=== PATIENT | male | born 1960 | race Caucasian/White ===

== ENCOUNTER 2023-05-03 17:57 | Emergency (ER) | payer OTHER, BC, SELFPAY ==
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
[2023-05-03 18:08] VITALS: BP 144/74; PULSE 62; RESP 20; TEMP 36.7; O2SAT 99
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
== END 2023-05-03 18:50 | disposition home or self-care (01) ==
PROVIDERS: Emergency Provider Registered Nurse; PCP Internal Medicine
DX: S62.617A Displaced fracture of proximal phalanx of left little finger, initial encounter for closed fracture (principal); V49.9XXA Car occupant (driver) (passenger) injured in unspecified traffic accident, initial encounter; E78.00 Pure hypercholesterolemia, unspecified; I10 Essential (primary) hypertension
CPT/HCPCS: 29125; 73130; 99214; G0463

== ENCOUNTER 2023-05-26 16:33 | Outpatient (CLI) | payer BC, SELFPAY ==
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
== END 2023-05-26 16:34 | disposition home or self-care (01) ==
LOC: ANHIMG 16:33
PROVIDERS: PCP Internal Medicine; Visit Provider Plastic Surgery
DX: S62.617D Displaced fracture of proximal phalanx of left little finger, subsequent encounter for fracture with routine healing (principal); X58.XXXD Exposure to other specified factors, subsequent encounter
CPT/HCPCS: 73130